=== PATIENT | male | born 1975 | race Caucasian/White ===

== ENCOUNTER 2019-06-16 01:28 | Emergency (ER) | payer OTHER ==
[~2019-06-16] VITALS: Ht 185.4 cm; Wt 120.0 kg
[2019-06-16 02:58] VITALS: BP 156/79
== END 2019-06-16 02:58 | disposition home or self-care (01) ==
LOC: ED 01:28
DX: L08.9 Local infection of the skin and subcutaneous tissue, unspecified (principal)
CPT/HCPCS: J0696; Q0092